=== PATIENT | female | born 1945 | race Caucasian/White ===

== ENCOUNTER 2017-12-10 09:28 | Emergency (ER) | payer MEDICARE ==
[2017-12-10 10:13] VITALS: BP 108/63
[2017-12-10] MEDS ORDERED: Ibuprofen ADULT LIQ* 600 MG/30 ML UDC PO ONE (10:30)
--- NOTE | 2017-12-10 10:30 | UC ---
Knee Pain HPI - HPI Summary HPI Summary: pt states having pain in the R knee this summer. had accidently tripped and fallen twice early this month which made it worse. admits to mild swelling. using husbands quad cane which helps. admits to sense of locking and giving out. - History of Current Complaint Chief Complaint: UCLowerExtremity Stated Complaint: RIGHT KNEE/LEG PAIN FROM FALL LAST WEEK Time Seen by Provider: 12/10/17 10:23 Hx Obtained From: Patient Onset/Duration: Gradual Onset Pain Intensity: 7 Character: Stiffness Aggravating Factor(s): Movement, Weight Bearing Alleviating Factor(s): Rest Associated Signs And Symptoms: Positive: Swelling. Negative: Redness, Fever, Weakness, Numbness, Tingling Able to Bear Weight: Yes - Risk Factors Septic Arthritis Risk Factor: Negative - Allergies/Home Medications Allergies/Adverse Reactions: Allergies Allergy/AdvReac Type Severity Reaction Status Date / Time No Known Allergies Allergy Verified 12/10/17 09:59 Home Medications: Home Medications Hydrochlorothiazide TAB* [Hydrodiuril TAB*] 25 mg PO DAILY 12/10/17 [History Confirmed 12/10/17] LORazepam [Ativan 1 MG TAB] 1 mg PO BID 12/10/17 [History Confirmed 12/10/17] Lactase [Lactaid] 3,000 unit PO PRN 12/10/17 [History] Metoprolol Tartrate TAB* [Lopressor TAB*] 50 mg PO DAILY 12/10/17 [History Confirmed 12/10/17] Simethicone TAB* [Mylicon TAB*] 80 mg PO AC PRN 12/10/17 [History Confirmed ] PMH/Surg Hx/FS Hx/Imm Hx Cardiovascular History: Hypertension Psychological History: Depression - Surgical History Surgical History: Yes Surgery Procedure, Year, and Place: HYSTERECTOMY. BACK SURGERY- [facility]. CHOLECYSTECTOMY. GASTRIC BYPASS. [facility]. EYE SURGERY FOR DOUBLE VISION - Family History Known Family History: Positive: Unknown - Social History Occupation: Retired Lives: With Family Alcohol Use: Rare Substance Use Type: Prescribed Substance Use Comment - Amount & Last Used: Hydrocodone PRN Smoking Status (MU): Never Smoked Tobacco - Immunization History Vaccination Up to Date: Yes Review of Systems Constitutional: Negative Skin: Negative Eyes: Negative ENT: Negative Respiratory: Negative Cardiovascular: Negative Gastrointestinal: Negative Genitourinary: Negative Motor: Negative Neurovascular: Negative Musculoskeletal: Arthralgia - r knee, Edema - r knee Neurological: Negative Psychological: Negative Is Patient Immunocompromised?: No All Other Systems Reviewed And Are Negative: Yes Physical Exam Triage Information Reviewed: Yes Appearance: Well-Appearing Vital Signs: Initial Vital Signs Temp 98.3 F 12/10/17 10:07 Pulse 57 12/10/17 10:07 Resp 16 12/10/17 10:07 BP 108/63 12/10/17 10:07 Pulse Ox 100 12/10/17 10:07 Vital Signs Reviewed: Yes Eyes: Positive: Conjunctiva Clear ENT: Positive: Normal ENT inspection Neck: Positive: Supple Respiratory: Positive: Lungs clear, Normal breath sounds Cardiovascular: Positive: RRR, No Murmur Abdomen Description: Positive: Nontender, No Organomegaly, Soft Bowel Sounds: Positive: Present Musculoskeletal: Positive: Other: - Right lower extremity exam: Hip ankle and foot are atraumatic. Right knee when compared to the left is mildly swollen primarily to the medial aspect. Patient has tenderness to the joint line. No crepitation or instability with palpation. No gross laxity on valgus varus anterior or posterior stressing. Right lower extremity has gross sensory and vascular and motor function. Patient has a slow but steady gait with the assistance of the quad cane. Neurological: Positive: Alert Psychological: Positive: Age Appropriate Behavior Skin Exam: Normal Diagnostics - Radiology No standard instances Radiology Interpretation Completed By: Radiologist - R knee OA Knee Pain Course/Dx - Course Course Of Treatment: no concern for fx or infection. OA on xray. Hx suggests possible meniscal tear. will nsaid and refer to orthopedics - Differential Dx/Diagnosis Provider Diagnoses: Acute R knee pain. OA R knee Discharge - Sign-Out/Discharge Documenting (check all that apply): Discharge/Admit/Transfer - Discharge Plan Condition: Stable Disposition: HOME Prescriptions: Naproxen TAB* [Naprosyn 375 mg TAB*] 375 mg PO BID #10 tab Patient Education Materials: Knee Pain (ED) Referrals: Danielle Huertas NP [Primary Care Provider] - If Needed Franky Bateman MD [Medical Doctor] - As Soon As Possible Additional Instructions: CONTINUE THE QUAD CANE - Billing Disposition and Condition Condition: STABLE Disposition: Home
--- NOTE | 2017-12-10 10:56 | RAD ---
HISTORY: pain, swelling COMPARISONS: None VIEWS: 4, Frontal, lateral, axial, and oblique views of the right knee FINDINGS: BONE DENSITY: There is diffuse osteopenia. BONES: There is no displaced fracture. JOINTS: There is moderate tricompartmental osteoarthritis. There is no suprapatellar joint effusion or lipohemarthrosis. ALIGNMENT: There is no dislocation. SOFT TISSUES: Unremarkable. OTHER FINDINGS: None. IMPRESSION: OSTEOARTHRITIS. NO ACUTE OSSEOUS INJURY. IF SYMPTOMS PERSIST, RECOMMEND REPEAT IMAGING.
[2017-12-10] MEDS ORDERED: Ibuprofen TAB* 400 MG PO ONE (10:58)
== END 2017-12-10 11:08 | disposition home or self-care (01) ==
LOC: UCCORT 09:28
DX: M17.11 Unilateral primary osteoarthritis, right knee (principal); I10 Essential (primary) hypertension; F32.9 Major depressive disorder, single episode, unspecified
CPT/HCPCS: 99212; A9270-GY; G0463

== ENCOUNTER 2018-02-27 08:27 | Emergency (ER) | payer MEDICARE ==
--- OUTSIDE RECORDS SUMMARY | 2018-02-27 08:39 | XMS REPORT ---
:1945 External Reference #:[id number] Author Organization [facility] Address [address], [address] [place] [address] Phone [phone] Care Team Providers Name Role Phone Alec Huertas NP Care Team Information Child Care Centre Manager Unavailable Alec Huertas NP Primary Care Physician Unavailable Payers Type Date Identification Numbers Payment Provider Subscriber Commercial Expires: Policy Number: Tara Adams 2010 [id number] [place] PayID: [id number] [address] [address] [place] [address] Medicare Primary Policy Number: [id number] Medicare David Adams [place] PayID: [id number] [address] [address] [place] [address] [facility] Policy Number: [facility] David Adams [place] [id number] PayID: [id number] [address] [place] [address] Problems Date Description Provider Status Onset: 09/01/2016 Essential hypertension AIDAN Moore Active Onset: 09/12/2014 Palpitations Justice Ponce M.D., Active FACC Onset: 08/18/2015 Chronic back pain Margot Baeza M.D. Active Onset: 02/18/2016 Gastroesophageal reflux disease AIDAN Moore Active without esophagitis Note: Document: 02/13/16 - Consult WILMAR - Jesus Owen M. 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 ADL's/IADL's Independent with all IADL's ADL's/IADL's Independent with all ADL's Cigarette Use Never Smoked Cigarettes ETOH Use Denies alcohol use Smoking Patient has never smoked Recreational Drug Use Denies Drug Use Daily Caffeine Consumes on average 2 cups of regular coffee per day Allergies, Adverse Reactions, Alerts Date Description Reaction Status Severity Comments 09/14/2016 Lactose (Intolerance) active 01/21/2011 NKDA inactive Medications Medication Date Status Form Strength Qnty SIG Indications Ordering Provider Metoprolol 08/27 Active Tablets ER 50mg 90tab 1 by I10 Jenniferleigh Succinate ER /2017 24HR s mouth Clune, HOG KILLER every day Lorazepam 03/07 Active Tablets 1mg 30tab take 1 F41.0 s tablet Clune, HOG KILLER by mouth two times daily as needed for panic attacks Referenc e #: [id number] Fluoxetine HCL 08/18 Active Capsules 40mg 180ca take one Z01.818 ps capsule Clune, HOG KILLER by mouth twice daily Hydrocodone-Acet Active Tablets 5-325mg 90tab 1 M17.11 Jenniferleigh aminophen s tabevery Clune, HOG KILLER 6 hours as needed pain.... . Referenc e #: [id number] Dairy-Digestive Active Chewtabs 9000Unit prn Margot / Florencio Baeza Apap Extra Active Tablets 500mg prn Unknown Strength / Fluticasone Active Suspension 50mcg/Act 15.80 2 sprays Jenniferleigh Propionate 0ml intranas Clune, HOG KILLER al every day Simethicone Active Capsules 125mg take 1 Unknown / tab by mouth after meals and before bedtime as needed for flatus Pantoprazole [address] 40mg Unknown Sodium / Ranitidine 150 Active Tablets 150mg 1 by Unknown Maximum Strength /0000 mouth twice a day Hydrochlorothiaz 08/27 Hx Tablets 25mg 90tab 1 by Alec s mouth AIDAN Huertas - every 02/07 day in am for HTN Metoprolol 08/25 Hx Tablets ER 50-12.5mg 90tab one PO I10 Alec Succinate 24HR s qd for AIDAN Huertas ER/Hydrochloroth - HTN iazide 08/27 Golytely 09/14 Hx Solution 236gm 4000m drink Z12.11 Rec l half the MD Emmy - evening 09/27 and half the morning of the procedur e (1 cup every 10') Dulcolax 09/[address] 5mg 4tabs 4 Z12.11 tablets MD Emmy - taken a 09/27 8pm day before the procedur e Magnesium 09/14 Hx Solution 1.745GM/3 296ml Z12.11 Dale Citrate 0ML MD Emmy - 09/27 Amoxicillin/Clav 03/04 Hx Tablets 500-125mg 20tab one by J01.90 Alec parker s mouth AIDAN Huertas Potassium - twice a 03/14 day x days Omeprazole 02/04 Hx Capsules 40mg [address] mouth - every Loratadine 01/14 Hx Tablets 10mg 30tab 1 by J30.9 Alec s mouth Aleksandar HOG KILLER - every Amoxicillin 12/10 Hx Capsules 500mg 30cap on by J02.9 Alec s mouth MIRIAN HuertasP - three 12/20 times day Venlafaxine HCL 05/26 Hx Tablets ER 150mg 30tab 1 by Z01.818 Margot ER /2014 24HR s mouth Florencio Baeza - every Metoprolol 02/08 Hx Tablets ER 25mg 90tab take one I10 Jenniferleigh Succinate /2010 24HR s tablet Clune, HOG KILLER - by mouth 08/25 once daily Nitroglycerin 01/25 Hx Tablets 0.4mg 25tab 1 tab 786.59 Austin Paniagua, /2010 Sub s prn , PhD chest pain, may repeat q 5 minutes x3 Prozac Hx Capsules 40mg 180ca 1 by Z01.818 Margot /0000 ps mouth Florencio Baeza - twice a Calcium + D Hx Tablets 600-200mg po bid Unknown /0000 -Unit - 12/10 Neurontin Hx Capsules 300mg 1 po tid Unknown / Mobic Hx Tablets 7.5mg 60tab 1 po bid Unknown / s Vitamin D Hx Capsules 2000Unit 1 po qd Unknown / Fish Oil Hx Capsules 500mg po tid Unknown / Aspirin Ec Hx Tablets DR 81mg 30tab 1 po qd Unknown / s - 12/10 Icaps Hx Capsules 2 po bid Unknown /0000 - 09/01 Vitamin D3 Super Hx Tablets 2000Unit 1 po qd Unknown Strength /0000 - 01/17 Nitrostat Hx Tablets 0.4mg 25tab 1 tab sl Jenniferleigh /0000 Sub s every 5 Clune, HOG KILLER - min x3 09/14 chest pain *divide in two bottles please* Folic Acid Hx Tablets 1mg 30tab 1 po bid Unknown / s - 12/10 Ranitidine Acid Hx Tablets 75mg 1 PO qd Margot Beater Worker Helper /0000 Florencio Baeza - 05/26 Famotidine Hx Tablets 20mg 1 by Unknown / mouth - every 02/09 day in /2017 the evening Ketorolac 00 Hx Solution 0.5% Chandana, Tromethamine / Kevon Neil MD 06/06 Ofloxacin Hx Solution 0.3% Ferpina, (Ophthalmic) Kevon Niel MD 06/06 Prednisolone Hx Suspension 1% Fergerspoli, Acetate Kevon Neil MD 06/06 Ranitidine HCL 00/00 Hx Tablets 150mg Shah, /0000 AIDAN Cheng - 01/30 Immunizations CPT Code Status Date Vaccine Lot # [id number] Given 03/07/2017 Influenza Vaccine Split Virus Preservative Free Im Use [id number] Given 03/08/2016 Influenza Vaccine (Fluzone) Age 3 And Older [id number] Given 05/26/2015 Pneumococcal Conjugate Vaccine 13 Valent For [id number] Intramuscular Use Q2038 Given 03/31/2015 Influenza Vaccine (Fluzone) Age 3 And Older Vital Signs Date Vital Result Comment 02/09/2018 BP Systolic Sitting Left Arm 115 mmHg BP Diastolic Sitting Left Arm 69 mmHg Heart Rate 58 /min Respiratory Rate 16 /min Height 62 inches 5'2" Weight 166.00 lb BMI (Body Mass Index) 30.4 kg/m2 BSA (Body Surface Area) 1.77 m2 [place] body weight in kilograms 50 O2 % BldC Oximetry 98 % 02/07/2018 BP Systolic Sitting Left Arm 104 mmHg BP Diastolic Sitting Left Arm 64 mmHg Heart Rate 70 /min Respiratory Rate 18 /min Height 62 inches 5'2" Weight 165.38 lb BMI (Body Mass Index) 30.2 kg/m2 BSA (Body Surface Area) 1.76 m2 [place] body weight in kilograms 50 01/17/2018 BP Systolic Sitting Left Arm 118 mmHg BP Diastolic Sitting Left Arm 70 mmHg Heart Rate 62 /min Respiratory Rate 16 /min Height 62 inches 5'2" Weight 171.00 lb BMI (Body Mass Index) 31.3 kg/m2 BSA (Body Surface Area) 1.79 m2 [place] body weight in kilograms 50 01/09/2018 BP Systolic Sitting Left Arm 126 mmHg BP Diastolic Sitting Left Arm 72 mmHg Body Temperature 98.5 F Heart Rate 72 /min Respiratory Rate 18 /min Height 62 inches 5'2" Weight 174.12 lb BMI (Body Mass Index) 31.8 kg/m2 BSA (Body Surface Area) 1.80 m2 [place] body weight in kilograms 50 09/22/2017 BP Systolic Sitting Left Arm 122 mmHg BP Diastolic Sitting Left Arm 76 mmHg Heart Rate 76 /min Respiratory Rate 18 /min Height 62 inches 5'2" Weight 184.12 lb BMI (Body Mass Index) 33.7 kg/m2 BSA (Body Surface Area) 1.85 m2 [place] body weight in kilograms 50 08/25/2017 BP Systolic Sitting Left Arm 154 mmHg BP Diastolic Sitting Left Arm 74 mmHg Heart Rate 54 /min Respiratory Rate 16 /min Height 62 inches 5'2" Weight 187.25 lb BMI (Body Mass Index) 34.2 kg/m2 BSA (Body Surface Area) 1.86 m2 [place] body weight in kilograms 50 07/26/2017 BP Systolic Sitting Left Arm 142 mmHg BP Diastolic Sitting Left Arm 84 mmHg Heart Rate 80 /min Respiratory Rate 18 /min Height 62 inches 5'2" Weight 190.50 lb BMI (Body Mass Index) 34.8 kg/m2 BSA (Body Surface Area) 1.87 m2 [place] body weight in kilograms 50 06/06/2017 BP Systolic Sitting Left Arm 122 mmHg BP Diastolic Sitting Left Arm 74 mmHg Body Temperature 98.6 F Heart Rate 78 /min Respiratory Rate 18 /min Height 62 inches 5'2" Weight 186.00 lb BMI (Body Mass Index) 34.0 kg/m2 BSA (Body Surface Area) 1.85 m2 [place] body weight in kilograms 50 03/07/2017 BP Systolic Sitting Left Arm 124 mmHg BP Diastolic Sitting Left Arm 72 mmHg Heart Rate 82 /min Respiratory Rate 18 /min Height 62 inches 5'2" Weight 185.00 lb BMI (Body Mass Index) 33.8 kg/m2 BSA (Body Surface Area) 1.85 m2 [place] body weight in kilograms 50 10/19/2016 BP Systolic Sitting Left Arm 136 mmHg BP Diastolic Sitting Left Arm 78 mmHg Heart Rate 68 /min Respiratory Rate 18 /min Height 62 inches 5'2" Weight 188.00 lb BMI (Body Mass Index) 34.4 kg/m2 BSA (Body Surface Area) 1.86 m2 [place] body weight in kilograms 50 09/14/2016 BP Systolic 150 mmHg BP Diastolic 84 mmHg Heart Rate 68 /min Weight 186.00 lb 09/01/2016 BP Systolic Sitting Left Arm 122 mmHg BP Diastolic Sitting Left Arm 72 mmHg Heart Rate 88 /min Respiratory Rate 18 /min Height 62 inches 5'2" Weight 186.00 lb BMI (Body Mass Index) 34.0 kg/m2 BSA (Body Surface Area) 1.85 m2 [place] body weight in kilograms 50 03/04/2016 BP Systolic Sitting Left Arm 130 mmHg BP Diastolic Sitting Left Arm 72 mmHg Body Temperature 98.5 F Heart Rate 82 /min Respiratory Rate 18 /min Height 62 inches 5'2" Weight 184.00 lb BMI (Body Mass Index) 33.7 kg/m2 BSA (Body Surface Area) 1.85 m2 [place] body weight in kilograms 50 01/29/2016 BP Systolic Sitting Left Arm 118 mmHg BP Diastolic Sitting Left Arm 72 mmHg Body Temperature 97.9 F Height 62 inches 5'2" Weight 181.00 lb BMI (Body Mass Index) 33.1 kg/m2 BSA (Body Surface Area) 1.83 m2 [place] body weight in kilograms 50 01/15/2016 BP Systolic Sitting Left Arm 154 mmHg BP Diastolic Sitting Left Arm 74 mmHg Body Temperature 98.5 F Height 62 inches 5'2" Weight 185.00 lb BMI (Body Mass Index) 33.8 kg/m2 BSA (Body Surface Area) 1.85 m2 [place] body weight in kilograms 50 01/05/2016 BP Systolic Sitting Left Arm 122 mmHg BP Diastolic Sitting Left Arm 76 mmHg Body Temperature 98.4 F Heart Rate 76 /min Respiratory Rate 18 /min Height 62 inches 5'2" Weight 183.00 lb BMI (Body Mass Index) 33.5 kg/m2 BSA (Body Surface Area) 1.84 m2 [place] body weight in kilograms 50 12/11/2015 BP Systolic Sitting Left Arm 124 mmHg BP Diastolic Sitting Left Arm 76 mmHg Body Temperature 99.1 F Heart Rate 70 /min Respiratory Rate 18 /min Height 62 inches 5'2" Weight 185.00 lb BMI (Body Mass Index) 33.8 kg/m2 BSA (Body Surface Area) 1.85 m2 [place] body weight in kilograms 50 05/26/2015 BP Systolic Sitting Left Arm 124 mmHg BP Diastolic Sitting Left Arm 70 mmHg Heart Rate 72 /min Respiratory Rate 19 /min Height 62 inches 5'2" Weight 184.00 lb BMI (Body Mass Index) 33.7 kg/m2 BSA (Body Surface Area) 1.85 m2 11/20/2014 BP Systolic Sitting Left Arm 114 mmHg BP Diastolic Sitting Left Arm 66 mmHg Heart Rate 68 /min Respiratory Rate 19 /min Height 62 inches 5'2" Weight 188.00 lb BMI (Body Mass Index) 34.4 kg/m2 BSA (Body Surface Area) 1.86 m2 09/12/2014 BP Systolic Sitting Right Arm 98 mmHg BP Diastolic Sitting Right Arm 50 mmHg Heart Rate 62 /min Respiratory Rate 16 /min Height 62 inches 5'2" Weight 189.00 lb BMI (Body Mass Index) 34.6 kg/m2 BSA (Body Surface Area) 1.87 m2 03/16/2012 BP Systolic Sitting Right Arm 132 mmHg BP Diastolic Sitting Right Arm 88 mmHg Heart Rate 56 /min Respiratory Rate 14 /min Height 62 inches 5'2" Weight 169.00 lb BMI (Body Mass Index) 30.9 kg/m2 03/08/2011 BP Systolic Sitting Left Arm 132 mmHg BP Diastolic Sitting Left Arm 82 mmHg Heart Rate 60 /min Respiratory Rate 16 /min Height 62 inches 5'2" Weight 174.00 lb BMI (Body Mass Index) 31.8 kg/m2 03/08/2011 Height 62 inches 5'2" 02/08/2011 BP Systolic Sitting Left Arm 122 mmHg BP Diastolic Sitting Left Arm 70 mmHg Heart Rate 66 /min Respiratory Rate 16 /min Height 62 inches 5'2" Weight 173.00 lb BMI (Body Mass Index) 31.6 kg/m2 01/25/2011 BP Systolic Sitting Right Arm 120 mmHg BP Diastolic Sitting Right Arm 70 mmHg BP Systolic Sitting Left Arm 124 mmHg BP Diastolic Sitting Left Arm 72 mmHg Heart Rate 72 /min Regular Respiratory Rate 12 /min Height 62 inches 5'2" Weight 172.00 lb BMI (Body Mass Index) 31.5 kg/m2 07/24/2007 Height 61 inches 5'1" Weight 214.00 lb 01/18/2007 Height 61 inches 5'1" Weight 224.00 lb 03/29/2006 Height 62 inches 5'2" Weight 233.00 lb Results Test Date Test Result H/L Range Note Hemoglobin/Hematocrit 01/27/2018 Hemoglobin 11.6 gm/dL 11.6-15.8 1 Hematocrit 34.9 % Low 36.0-46.1 1 Type And Screen 01/27/2018 Patient Blood Type O POS 1 Antibody Screen Negative Negative 1 CBS W/Automated Diff 01/27/2018 White Blood Count 8.1 K/uL 3.1-10.7 1 Red Blood Count 3.86 M/uL Low 3.90-5.40 1 Hemoglobin 12.3 gm/dL 11.6-15.8 1 Hematocrit 36.9 % 36.0-46.1 1 Mean Cell Volume 95.6 fl 80.9-99.0 1 Mean Corpuscular HGB 31.9 pg 25.9-32.7 1 Mean Corpuscular HGB Conc 33.3 g/dL 30.8-34.3 1 Platelet Count 242 K/uL 155-360 1 Red Cell Distri Width SD 47.1 fl High 3-47 1 Red Cell Distri Width %CV 14.0 % 11.7-14.4 1 Mean Platelet Volume 10.2 fL 8.9-12.4 1 Neut% 81.8 % High 40.4-72.8 1 Lymph % 10.6 % Low 20.0-42.0 1 [place] % 7.5 % 4.3-13.2 1 Eo% 0.1 % 0.0-6.6 1 Bas% 0.0 % 0.0-1.1 1 Neut# 6.64 K/uL 1.8-7.0 1 Lymph # 0.86 K/uL Low 1.0-4.0 1 [place] # 0.61 K/uL 0.3-0.9 1 Eos # 0.01 K/uL 0.0-0.5 1 Baso # 0.00 K/uL 0.0-0.1 1 Occult Blood,Stool 01/27/2018 Stool Occult POSITIVE Negative 1, 2 Blood-Single Spec Comprehensive Metabolic 01/27/2018 Glucose 119 mg/dL High 74-106 1 Panel BUN 13 mg/dL 7-18 1 Creatinine 1.1 mg/dL 0.6-1.3 1 Glom Filtration Rate, Estimate 52 mL/min >60 1 If >60 mL/min >60 1, 3 BUN/Creat 11.8 ratio 1 Sodium 138 mmol/L 136-145 1 Potassium 3.2 mmol/L Low 3.5-5.1 1 Chloride 99 mmol/L 98-107 1 Carbon Dioxide 32 mmol/L 21-32 1 Anion Gap 7 mEq/L Low 8-16 1 Calcium 8.6 mg/dL 8.5-10.1 1 Total Protein 6.9 g/dL 6.4-8.2 1 Albumin 3.1 g/dL Low 3.4-5.0 1 Globulin 3.8 g/dL 1.9-4.3 1 Alb/Glob 0.8 ratio 1 Bilirubin,Total 0.3 mg/dL 0.2-1.0 1 Sgot/Ast 20 U/L 15-37 1 SGPT/Alt 16 U/L 12-78 1 Alkaline Phosphatase 79 U/L 45-117 1 Blood Culture 01/26/2018 Blood Culture Aerobic NO GROWTH: FINAL <SEE NOTE> 4, 5 Blood Culture Anaerobic NO GROWTH: FINAL <SEE NOTE> 4, 6 Ua RFX Micro & Culture II 01/26/2018 Urine Color YELLOW Yellow 4 Urine Clarity CLEAR Clear 4 Urine Glucose - Dipstick NEGATIVE mg/dL Negative 4 Urine Bilirubin - Dipstick NEGATIVE Negative 4 Urine Ketone TRACE mg/dL High Negative 4 Urine Specific [place] 1.010 1.010-1.030 4 Urine Blood NEGATIVE Negative 4 Urine PH 6.0 Low 6.5-7.5 4 Urine Protein - Dipstick NEGATIVE mg/dL Negative 4 Urine Urobilinogen - Dipstick 1.0 E.U./dL 0.2-1.0 4 Urine Nitrite - Dipstick NEGATIVE Negative 4 Urine Leuk Esterase NEGATIVE Negative 4 Source: URINE, CLEAN CAT <SEE NOTE> 4, 7 CBS W/Automated Diff 01/26/2018 White Blood Count 7.8 K/uL 3.1-10.7 4 Red Blood Count 4.14 M/uL 3.90-5.40 4 Hemoglobin 13.2 gm/dL 11.6-15.8 4 Hematocrit 39.8 % 36.0-46.1 4 Mean Cell Volume 96.1 fl 80.9-99.0 4 Mean Corpuscular HGB 31.9 pg 25.9-32.7 4 Mean Corpuscular HGB Conc 33.2 g/dL 30.8-34.3 4 Platelet Count 256 K/uL 155-360 4 Red Cell Distri Width SD 48.4 fl High 3-47 4 Red Cell Distri Width %CV 14.2 % 11.7-14.4 4 Mean Platelet Volume 10.5 fL 8.9-12.4 4 Neut% 79.9 % High 40.4-72.8 4 Lymph % 14.0 % Low 20.0-42.0 4 [place] % 5.7 % 4.3-13.2 4 Eo% 0.3 % 0.0-6.6 4 Bas% 0.1 % 0.0-1.1 4 Neut# 6.20 K/uL 1.8-7.0 4 Lymph # 1.09 K/uL 1.0-4.0 4 [place] # 0.44 K/uL 0.3-0.9 4 Eos # 0.02 K/uL 0.0-0.5 4 Baso # 0.01 K/uL 0.0-0.1 4 Comprehensive Metabolic Panel 01/26/2018 Glucose 132 mg/dL High 74-106 4 BUN 16 mg/dL 7-18 4 Creatinine 1.2 mg/dL 0.6-1.3 4 Glom Filtration Rate, Estimate 47 mL/min >60 4 If 56 mL/min >60 4, 8 BUN/Creat 13.3 ratio 4 Sodium 138 mmol/L 136-145 4 Potassium 3.3 mmol/L Low 3.5-5.1 4 Chloride 99 mmol/L 98-107 4 Carbon Dioxide 32 mmol/L 21-32 4 Anion Gap 7 mEq/L Low 8-16 4 Calcium 9.2 mg/dL 8.5-10.1 4 Total Protein 8.0 g/dL 6.4-8.2 4 Albumin 3.7 g/dL 3.4-5.0 4 Globulin 4.3 g/dL 1.9-4.3 4 Alb/Glob 0.9 ratio 4 Bilirubin,Total 0.4 mg/dL 0.2-1.0 4 Sgot/Ast 16 U/L 15-37 4 SGPT/Alt 18 U/L 12-78 4 Alkaline Phosphatase 94 U/L 45-117 4 Laboratory test finding 01/26/2018 Lipase 112 U/L 56-289 4 Lactic Acid 01/26/2018 Lactic Acid 1.1 mmol/L 0.4-1.9 4 Lab Reflex >2.0 for Sepsis? Y 4 Blood Culture 01/26/2018 Blood Culture Aerobic NO GROWTH: FINAL <SEE NOTE> 4, 9 Blood Culture Anaerobic NO GROWTH: FINAL <SEE NOTE> 4, 10 Comprehensive Metabolic Panel 01/17/2018 Glucose 83 mg/dL 74-106 11 BUN 21 mg/dL High 7-18 11 Creatinine 1.4 mg/dL High 0.6-1.3 11 Glom Filtration Rate, Estimate 39 mL/min >60 11 If 47 mL/min >60 11, 12 BUN/Creat 15.0 ratio 11 Sodium 143 mmol/L 136-145 11 Potassium 3.3 mmol/L Low 3.5-5.1 11 Chloride 104 mmol/L 98-107 11 Carbon Dioxide 32 mmol/L 21-32 11 Anion Gap 7 mEq/L Low 8-16 11 Calcium 8.7 mg/dL 8.5-10.1 11 Total Protein 6.8 g/dL 6.4-8.2 11 Albumin 3.2 g/dL Low 3.4-5.0 11 Globulin 3.6 g/dL 1.9-4.3 11 Alb/Glob 0.9 ratio 11 Bilirubin,Total 0.2 mg/dL 0.2-1.0 11 Sgot/Ast 21 U/L 15-37 11 SGPT/Alt 17 U/L 12-78 11 Alkaline Phosphatase 89 U/L 45-117 11 Laboratory test finding 01/17/2018 Amylase 58 U/L 25-115 11 Lipase 150 U/L 56-289 11 Urine Culture And 12/06/2017 Urine Culture SEE RESULT BELOW 13 Sensitivities Laboratory test finding 07/21/2017 Magnesium 2.3 mg/dL 1.8-2.4 14 Phosphorous 3.1 mg/dL 2.5-4.0 14 Ast-GN67 10/19/2016 Nitrofurantoin <=16 Trimethoprim/Sulfamethoxazole <=20 Ampicillin 8 Cefazolin <=4 Ampicillin/Sulbactam 4 Ciprofloxacin <=0.25 Piperacillin/Tazobactam <=4 Ceftazidime <=1 Ceftriaxone <=1 Cefepime <=1 Levofloxacin <=0.12 Imipenem <=0.25 Gentamicin <=1 Tobramycin <=1 Urine Culture 10/19/2016 Urine Culture ESCHERICHIA COLI 15 Quantity > 100,000 CFU/mL 16 Glycohemoglobin A1c 09/22/2016 Glycohemoglobin (A1c) 5.7 % 4.2-6.3 17, 18 eAG 117 mg/dL 17 CBS W/Automated Diff 09/10/2016 White Blood Count 5.1 K/uL 3.1-10.7 19 Red Blood Count 4.51 M/uL 3.90-5.40 19 Hemoglobin 14.0 gm/dL 11.6-15.8 19 Hematocrit 43.9 % 36.0-46.1 19 Mean Cell Volume 97.3 fl 80.9-99.0 19 Mean Corpuscular HGB 31.0 pg 25.9-32.7 19 Mean Corpuscular HGB Conc 31.9 g/dL 30.8-34.3 19 Platelet Count 251 K/uL 150-400 19 Red Cell Distri Width SD 50.8 fl High 3-47 19 Red Cell Distri Width %CV 14.6 % High 11.7-14.4 19 Mean Platelet Volume 11.1 fL 8.9-12.4 19 Neut% 65.1 % 40.4-72.8 19 Lymph % 22.2 % 20.0-42.0 19 [place] % 8.1 % 4.3-13.2 19 Eo% 4.2 % 0.0-6.6 19 Bas% 0.4 % 0.0-1.1 19 Neut# 3.29 K/uL 1.8-7.0 19 Lymph # 1.12 K/uL 1.0-4.0 19 [place] # 0.41 K/uL 0.3-0.9 19 Eos # 0.21 K/uL 0.0-0.5 19 Baso # 0.02 K/uL 0.0-0.1 19 Comprehensive Metabolic Panel 09/10/2016 Glucose 141 mg/dL High 74-106 19 BUN 16 mg/dL 7-18 19 Creatinine 1.1 mg/dL 0.6-1.3 19 Glom Filtration Rate, Estimate 52 mL/min >60 19 If >60 mL/min >60 19, 20 BUN/Creat 14.5 ratio 19 Sodium 143 mmol/L 136-145 19 Potassium 4.2 mmol/L 3.5-5.1 19 Chloride 109 mmol/L High 98-107 19 Carbon Dioxide 26 mmol/L 21-32 19 Anion Gap 8 mEq/L 8-16 19 Calcium 8.5 mg/dL 8.5-10.1 19 Total Protein 6.7 g/dL 6.4-8.2 19 Albumin 3.6 g/dL 3.4-5.0 19 Globulin 3.1 g/dL 1.9-4.3 19 Alb/Glob 1.2 ratio 19 Bilirubin,Total 0.3 mg/dL 0.2-1.0 19 Sgot/Ast 27 U/L 15-37 19 SGPT/Alt 30 U/L 12-78 19 Alkaline Phosphatase 95 U/L 45-117 19 LDL Cholesterol Profile 09/10/2016 Cholesterol 167 mg/dL <200 19, 21 Triglycerides 78 mg/dL <150 19, 22 HDL Cholesterol 73 mg/dL >40 19, 23 LDL-Cholesterol 78 mg/dL < 100 19, 24 Laboratory test finding 09/10/2016 Vitamin D,1,25 62.5 pg/mL 19.9-79.3 19, 25 Dihydroxy Basic Metabolic Panel 11/20/2014 Glucose 89 mg/dL 74-106 BUN 20 mg/dL High 7-18 Creatinine 0.9 mg/dL 0.6-1.3 Glom Filtration Rate, Estimate >60 mL/min >60 If >60 mL/min >60 26 BUN/Creat 22.2 ratio Sodium 144 mmol/L 136-145 Potassium 4.0 mmol/L 3.5-5.1 Chloride 110 mmol/L High 98-107 Carbon Dioxide 27 mmol/L 21-32 Anion Gap 7 mEq/L Low 8-16 Calcium 8.7 mg/dL 8.5-10.1 LDL Cholesterol Profile 11/20/2014 Cholesterol 167 mg/dL 150-200 27 Triglycerides 111 mg/dL 50-150 28 HDL Cholesterol 63 mg/dL 60-150 29 LDL-Cholesterol 82 mg/dL 75-100 30 Liver Function Tests 11/20/2014 Total Protein 6.6 g/dL 6.4-8.2 Albumin 3.6 g/dL 3.4-5.0 Globulin 3.0 g/dL 1.9-4.3 Alb/Glob 1.2 ratio Bilirubin,Total 0.2 mg/dL 0.2-1.0 Bilirubin,Direct < 0.1 mg/dL 0.0-0.2 Bilirubin,Indirect 0.1 mg/dL 0.0-0.9 Sgot/Ast 27 U/L 15-37 SGPT/Alt 27 U/L 12-78 Alkaline Phosphatase 94 U/L 45-117 Laboratory test finding 11/20/2014 Thyroid Stim Hormone 1.79 uIU/mL 0.36- 3.74 CBC/Manual Differential 11/20/2014 White Blood Count 5.8 K/uL 3.1-10.7 Red Blood Count 4.17 M/uL 3.90-5.40 Hemoglobin 13.4 gm/dL 11.6-15.8 Hematocrit 40.9 % 36.0-46.1 Mean Cell Volume 98.1 fl 80.9-99.0 Mean Corpuscular HGB 32.1 pg 25.9-32.7 Mean Corpuscular HGB Conc 32.8 g/dL 30.8-34.3 Platelet Count 247 K/uL 155-360 Red Cell Distri Width %CV 13.1 % 11.7-14.4 Mean Platelet Volume 11.3 fL 8.9-12.4 Total Cells Counted 100 #CELLS Neutrophils% 75 % High 33-73 Lymph% 15 % Low 17-56 Platelet Estimate NORMAL Band% 3 % 0-8 Monocyte% 5 % 0-10 Eosinophil% 1 % 0-5 Basophil% 1 % 0-2 Anisocytosis 1+ Macrocytosis 1+ Differential Comment See Note 31 BUN And Creatinine 07/26/2007 BUN 20 mg/dL 5-23 BUN/Creat 18.1 Creatinine 1.1 mg/dL 0.5-1.4 Laboratory test finding 07/26/2007 Albumin 4.1 g/dL 3.5-5.0 Alkaline Phosphatase 98 U/L 50-136 Bilirubin,Direct 0.1 mg/dL 0.1-0.4 Bilirubin,Indirect 0.2 mg/dL 0.0-0.9 Bilirubin,Total 0.3 mg/dL 0.2-1.2 SGPT/Alt 32 U/L 30-65 Sgot/Ast 25 U/L 16-40 Total Protein 6.4 g/dL 6.3-8.0 BUN And Creatinine 01/18/2007 BUN 20 mg/dL 5-23 Creatinine 0.9 mg/dL 0.5-1.4 Laboratory test finding 01/18/2007 Albumin 4.0 g/dL 3.5-5.0 Alkaline Phosphatase 95 U/L 50-136 Bilirubin,Direct 0.1 mg/dL 0.1-0.4 Bilirubin,Indirect 0.1 mg/dL 0.0-0.9 Bilirubin,Total 0.2 mg/dL 0.2-1.2 SGPT/Alt 43 U/L 30-65 Sgot/Ast 28 U/L 16-40 Total Protein 6.6 g/dL 6.3-8.0 1 BLACK STOOLS/WAS HERE YESTERDAY 2 Method: Glenis Gurdon Hemoccult Card 3 Note: Persistent reduction for 3 months or more in an eGFR <60 mL/min/1.73 m2 defines CKD. Patients with eGFR values >/=60 mL/min/1.73 m2 may also have CKD if evidence of persistent proteinuria is present. The original MDRD equation for estimated GFR is not valid for patients less than 18 years of age. Additional information may be found at [email or web address]. 4 ABD PAIN 5 NO GROWTH: FINAL REPORT 6 NO GROWTH: FINAL REPORT 7 URINE, CLEAN CATCH 8 Note: Persistent reduction for 3 months or more in an eGFR <60 mL/min/1.73 m2 defines CKD. Patients with eGFR values >/=60 mL/min/1.73 m2 may also have CKD if evidence of persistent proteinuria is present. The original MDRD equation for estimated GFR is not valid for patients less than 18 years of age. Additional information may be found at [email or web address]. 9 NO GROWTH: FINAL REPORT 10 NO GROWTH: FINAL REPORT 11 R10.13 12 Note: Persistent reduction for 3 months or more in an eGFR <60 mL/min/1.73 m2 defines CKD. Patients with eGFR values >/=60 mL/min/1.73 m2 may also have CKD if evidence of persistent proteinuria is present. The original MDRD equation for estimated GFR is not valid for patients less than 18 years of age. Additional information may be found at [email or web address]. 13 SEE RESULT BELOW Name: DAVID BARRERA : [address]: Jonas Valadez MD Acct: [id number] Unit: [id number] AGE: 72 Location: [facility] Re12/06/17 SEX: F Status: REG REF SPEC: [id number] JAIR: 12/06/[address] [facility] [address]: Jonas Valadez MD REQ: [id number] RECD: 12/06/17 STATUS: INGRIS WONG DR: Alec Huertas HOG KILLER _ SOURCE: URINE SPDESC: ORDERED: Urine Culture QUERIES: Urine Source: Clean Catch Procedure Result Reported Site Urine Culture Final 12/08/17- 0809 ML Organism 1 ESCHERICHIA COLI [place] Count >100,000 (Many) CFU/ML 1. ESCHERICHIA COLI M.I.C. RX --------- ------ Ampicillin 8 S Cefazolin <=4 S Cefepime <=1 S Ceftriaxone <=1 S Ciprofloxacin <=0.25 S Gentamicin <=1 S Levofloxacin <=0.12 S Meropenem <=0.25 S Nitrofurantoin <=16 S Tetracycline <=1 S Pipercillin/Tazobactam <=4 S Trimethoprim/Sulfamethoxazole <=20 S Amoxicillin/Clavulanic Acid 4 S Aztreonam <=1 S Contact the Microbiology Department for any additional antibiotic reporting. * ML - Main Lab . END OF REPORT DEPARTMENT OF PATHOLOGY, [address] [place] [address] Mandeep Dunbar M.D. Director [facility] # [id number] 14 Z01.818 H26.9 15 ESCHERICHIA COLI 16 > 100,000 CFU/mL 17 R73.9 18 Elevated levels of HbA1c suggest the need for more aggressive treatment of glycemia. The [place] [employer] recommends that a primary goal of therapy should be a HbA1c of <7% and that physicians should re-evaluate the treatment regimen in patients with HbA1c values consistently >8%. 19 I10 20 Note: Persistent reduction for 3 months or more in an eGFR <60 mL/min/1.73 m2 defines CKD. Patients with eGFR values >/=60 mL/min/1.73 m2 may also have CKD if evidence of persistent proteinuria is present. The original MDRD equation for estimated GFR is not valid for patients less than 18 years of age. Additional information may be found at www.kdoqi.org. 21 Reference Guidelines*: Desirable: ........... < 200 mg/dL Borderline High: ..... 200-239 mg/dL High: ................ >=240 mg/dL * The National Cholesterol Education Program (NCEP) 22 Reference Guidelines*: Normal: ............. < 150 mg/dL Borderline High: .... 150-199 mg/dL High: ............... 200-499 mg/dL Very High: .......... > 500 mg/dL * Source: National Cholesterol Education Program (NCEP) 23 Reference Guidelines*: Low HDL: ..... < 40 mg/dL Normal: ..... 40-60 mg/dL Desirable: ... > 60 mg/dL *The National Cholesterol Education Program(NCEP) 24 Reference Guidelines*: Optimal:........... <100 mg/dL Near Optimal....... 100-129 mg/dL Borderline High.... 130-159 mg/dL High............... 160-189 mg/dL Very High.......... >=190 mg/dL * Source: National Cholesterol Education Program (NCEP) 25 Performed at: [facility] - [facility] [id number] Icu Rn: Chris Iyer MD, Phone: [phone] 26 Note: Persistent reduction for 3 months or more in an eGFR <60 mL/min/1.73 m2 defines CKD. Patients with eGFR values >/=60 mL/min/1.73 m2 may also have CKD if evidence of persistent proteinuria is present. The original MDRD equation for estimated GFR is not valid for patients less than 18 years of age. Additional information may be found at www.kdoqi.org. 27 Reference Guidelines*: Desirable: ........... < 200 mg/dL Borderline High: ..... 200-239 mg/dL High: ................ >=240 mg/dL * The National Cholesterol Education Program (NCEP) 28 Reference Guidelines*: Normal: ............. < 150 mg/dL Borderline High: .... 150-199 mg/dL High: ............... 200-499 mg/dL Very High: .......... > 500 mg/dL * Source: National Cholesterol Education Program (NCEP) 29 Reference Guidelines*: Low HDL: ..... < 40 mg/dL Normal: ..... 40-60 mg/dL Desirable: ... > 60 mg/dL *The National Cholesterol Education Program(NCEP) 30 Reference Guidelines*: Optimal:........... <100 mg/dL Near Optimal....... 100-129 mg/dL Borderline High.... 130-159 mg/dL High............... 160-189 mg/dL Very High.......... >=190 mg/dL * Source: National Cholesterol Education Program (NCEP) 31 FEW LRG PLTS SEEN Procedures Date CPT Code Description Status Comment 01/25/2018 04450 EGD With Biopsy Completed 07/26/2017 01017 EKG-Tracing And Report Completed 09/27/2016 61698 Colonoscopy Completed 04/28/2015 Mammogram Completed Q 2 years Smiley Behzad 06/27/2012 Bone Mineral Density Test Completed osteopenia 03/16/2012 58622 EKG-Tracing And Report Completed 02/08/2011 05404 Holter Monitor 24HR Completed Inter/Report 01/29/2011 95303 Stress Test Interpre And Report Completed Only 01/29/2011 64103 Stress Test Physician Super Completed Only 01/29/2011 94159 Myocardial Imaging Tomographic Completed Multiple Study AT Rest Or Stress 01/25/2011 98239 EKG-Tracing And Report Completed 01/25/2011 94708 EKG-Tracing And Report Completed 01/04/2011 44105 Echocardiogram Complete Completed 07/24/2007 19949 Asp/Injection small joint/bursa Completed (ie-fingers,toes) 03/07/2007 25 Disability Form Completed 03/29/2006 03962 Asp/Injection small joint/bursa Completed (ie-fingers,toes) 05/17/2005 Colonoscopy Completed 04/13/2000 Flexible Sigmoidoscopy Completed Encounters Type Date Location Provider CPT E/M Dx Office Visit 02/07/2018 2:00p Family Medicine AIDAN Moore 79774 I10 R10.13 Office Visit 01/17/2018 2:30[place] [address] R10.13 Office Visit 01/09/2018 1:45p Family AIDAN Govea 73411 R10.13 R10.816 Office Visit 09/22/2017 10:30a Family AIDAN Govea 70087 I10 F41.0 Office Visit 08/25/2017 10:30a Family AIDAN Govea 78383 I10 F33.1 F41.0 Office Visit 07/26/2017 10:15a Family AIDAN Govea 51917 Z01.818 H54.52A1 F41.0 I10 Office Visit 06/06/2017 9:00a Family AIDAN Govea 96825 F41.0 Office Visit 03/07/2017 10:00a Family AIDAN Govea 46119 F41.0 I10 M54.5 F33.1 Z23 Office Visit 10/21/2016 10:15a Family [facility] Alec Huertas, [facility] [address] I10 Office Visit 10/19/2016 1:30p [facility] Alec Huertas [facility] 97245 Z01.818 H26.9 R30.0 I10 Office Visit 09/14/2016 10:45[place] [address] Z12.11 Office Visit 09/01/2016 10:00a [facility] Alec Huertas, [facility] [address]74[address] I10 M54.5 Office Visit 03/04/2016 3:00p [facility] Alec Huertas, [facility] 43083 J01.90 Office Visit 01/29/2016 10:15a [facility] Alec Huertas [facility] 96777 J30.9 J31.2 Office Visit 01/15/2016 1:15p [facility] Alec Huertas [facility] 25204 J30.9 Office Visit 01/05/2016 11:30a Family Medicine Margot Baeza M.D. 44915 J31.2 Office Visit 12/11/2015 11:45a [facility] Alec Huertas [facility] 30955 J02.9 Office Visit 05/26/2015 1:00p Family Medicine Margot Baeza M.D. 10466 F33.1 Z23 Office Visit 11/20/2014 1:30p Family Medicine Margot Baeza M.D. 03700 296.32 785.1 401.1 Office Visit 09/12/2014 2:00p Cardiology Office Justice Ponce, [address] 401.1 MCarina, [facility] 272.2 785.1 Office Visit 03/16/2012 10:20a [place]iology [place] [address] 401.1 786.59 427.69 Office Visit 03/08/2011 11:20a Cardiology [place] [address] 786.59 401.1 786.05 272.2 785.1 Office Visit 02/08/2011 1:20p Cardiology Office MARY Flowers 74334 786.59 401.1 786.05 272.2 785.1 Office Visit 01/25/2011 1:20p Cardiology Office Beronica MARY Rodriguez 07480 786.59 401.1 786.05 272.2 Plan of Care Future Appointment(s):08/10/2018 10:00 am - AIDAN Moore at [facility]03/10/2018 10:00 am - Family Nurse at [facility]02/09/2018 - Dale Booth, MDR10.13 Epigastric painComments:abdominal pain resolvedI would not continue pantoprazole after it runs out.K62.5 Hemorrhage of anus and rectumComments:work up at [facility], bleeding scan suggested colonic source. Get colonoscopy records
--- OUTSIDE RECORDS SUMMARY | 2018-02-27 08:40 | XMS REPORT ---
:1945 External Reference #:[id number] Author Organization [facility] Address [address], [address] [place] [address] Phone [phone] Care Team Providers Name Role Phone Alec Huertas NP Care Team Information Workforce Management Coordinator Unavailable Alec Huertas NP Primary Care Physician Unavailable Payers Type Date Identification Numbers Payment Provider Subscriber Commercial Expires: Policy Number: Tara Adams 2010 [id number] [employer] PayID: [id number] [address] [address] [place] [address] Medicare Primary Policy Number: [id number] Medicare David Adams [employer] PayID: [id number] [address] [address] [place] [address] [facility] Policy Number: [facility] David Adams [employer] [id number] PayID: [id number] [address] [place] [address] Problems Date Description Provider Status Onset: 09/01/2016 [...] Succinate ER /2017 24HR s mouth Clune, [employer] every day Lorazepam 03/07 Active Tablets 1mg 30tab take 1 F41.0 s tablet 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 . Referenc e #: [id number] Dairy-Digestive Active Chewtabs 9000Unit prn Margot / Florencio Baeza Apap Extra Active Tablets 500mg prn Unknown Strength / Fluticasone Active Suspension 50mcg/Act 15.80 2 sprays Jenniferleigh Propionate 0ml intranas Clune, [employer] MILL OPERATOR al every day Simethicone Active Capsules 125mg [...] 1 by J30.9 Alec s mouth Aleksandar [employer] OPER[employer] - every Amoxicillin 12/10 Hx Capsules 500mg 30cap on by J02.9 Alec s mouth MIRIAN HuertasP - three 12/20 times day Venlafaxine HCL 05/26 Hx Tablets ER 150mg 30tab 1 by Z01.818 Margot ER /2014 24HR s mouth Florencio Baeza - every Metoprolol 02/08 Hx Tablets ER 25mg 90tab take one I10 Jenniferleigh Succinate /2010 24HR s tablet 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, [employer] MILL OPERATOR - by mouth 08/25 once daily Nitroglycerin [...] Jenniferleigh /0000 Sub s every 5 Clune, [employer] M[employer] OPERATOR - min x3 09/14 chest pain *divide in two bottles please* Folic Acid Hx Tablets 1mg 30tab 1 po bid Unknown / s - 12/10 Ranitidine Acid Hx Tablets 75mg 1 PO qd Margot Outside Collector /0000 Florencio Baeza - 05/26 Famotidine Hx Tablets 20mg 1 by Unknown / mouth - every 02/09 day in /2017 the evening Ketorolac 00 Hx Solution 0.5% Chandana, Tromethamine / Kevon Neil MD 06/06 Ofloxacin Hx Solution 0.3% Ferpina, (Ophthalmic) Kevon Neil MD 06/06 Prednisolone Hx Suspension 1% Fergerspoli, Acetate Kevon Neil MD 06/06 Ranitidine HCL 00/00 Hx Tablets 150mg Shah, /0000 AIDAN Cheng - 01/30 Immunizations CPT Code Status Date Vaccine Lot # [id number] Given 03/07/2017 Influenza Vaccine Split Virus Preservative Free Im Use Q2038 Given 03/08/2016 Influenza Vaccine (Fluzone) Age 3 And Older 99991 Given 05/26/2015 Pneumococcal Conjugate Vaccine 13 Valent For [id number] Intramuscular Use Q2038 Given 03/31/2015 Influenza Vaccine (Fluzone) Age 3 And Older Vital Signs Date Vital Result Comment 02/09/2018 BP Systolic Sitting Left Arm 115 mmHg BP Diastolic Sitting Left Arm 69 mmHg Heart Rate 58 /min Respiratory Rate 16 /min Height 62 inches 5'2" Weight 166.00 lb BMI (Body Mass Index) 30.4 kg/m2 BSA (Body Surface Area) 1.77 m2 [place] body weight in kilograms 50 O2 % BldC Oximetry 98 % 02/07/2018 BP Systolic Sitting Left Arm 104 mmHg BP Diastolic Sitting Left Arm 64 mmHg Heart Rate 70 /min Respiratory Rate 18 /min Height 62 inches 5'2" Weight 165.38 lb BMI (Body Mass Index) 30.2 kg/m2 BSA (Body Surface Area) 1.76 m2 [place] body weight in kilograms 50 01/17/2018 BP Systolic Sitting Left Arm 118 mmHg BP Diastolic Sitting Left Arm 70 mmHg Heart Rate 62 /min Respiratory Rate 16 /min Height 62 inches 5'2" Weight 171.00 lb BMI (Body Mass Index) 31.3 kg/m2 BSA (Body Surface Area) 1.79 m2 [place] body weight in kilograms 50 01/09/2018 BP Systolic Sitting Left Arm 126 mmHg BP Diastolic Sitting Left Arm 72 mmHg Body Temperature 98.5 F Heart Rate 72 /min Respiratory Rate 18 /min Height 62 inches 5'2" Weight 174.12 lb BMI (Body Mass Index) 31.8 kg/m2 BSA (Body Surface Area) 1.80 m2 [place] body weight in kilograms 50 09/22/2017 BP Systolic Sitting Left Arm 122 mmHg BP Diastolic Sitting Left Arm 76 mmHg Heart Rate 76 /min Respiratory Rate 18 /min Height 62 inches 5'2" Weight 184.12 lb BMI (Body Mass Index) 33.7 kg/m2 BSA (Body Surface Area) 1.85 m2 [place] body weight in kilograms 50 08/25/2017 BP Systolic Sitting Left Arm 154 mmHg BP Diastolic Sitting Left Arm 74 mmHg Heart Rate 54 /min Respiratory Rate 16 /min Height 62 inches 5'2" Weight 187.25 lb BMI (Body Mass Index) 34.2 kg/m2 BSA (Body Surface Area) 1.86 m2 [place] body weight in kilograms 50 07/26/2017 BP Systolic Sitting Left Arm 142 mmHg BP Diastolic Sitting Left Arm 84 mmHg Heart Rate 80 /min Respiratory Rate 18 /min Height 62 inches 5'2" Weight 190.50 lb BMI (Body Mass Index) 34.8 kg/m2 BSA (Body Surface Area) 1.87 m2 [place] body weight in kilograms 50 06/06/2017 BP Systolic Sitting Left Arm 122 mmHg BP Diastolic Sitting Left Arm 74 mmHg Body Temperature 98.6 F Heart Rate 78 /min Respiratory Rate 18 /min Height 62 inches 5'2" Weight 186.00 lb BMI (Body Mass Index) 34.0 kg/m2 BSA (Body Surface Area) 1.85 m2 [place] body weight in kilograms 50 03/07/2017 BP Systolic Sitting Left Arm 124 mmHg BP Diastolic Sitting Left Arm 72 mmHg Heart Rate 82 /min Respiratory Rate 18 /min Height 62 inches 5'2" Weight 185.00 lb BMI (Body Mass Index) 33.8 kg/m2 BSA (Body Surface Area) 1.85 m2 [place] body weight in kilograms 50 10/19/2016 BP Systolic Sitting Left Arm 136 mmHg BP Diastolic Sitting Left Arm 78 mmHg Heart Rate 68 /min Respiratory Rate 18 /min Height 62 inches 5'2" Weight 188.00 lb BMI (Body Mass Index) 34.4 kg/m2 BSA (Body Surface Area) 1.86 m2 [place] body weight in kilograms 50 09/14/2016 BP Systolic 150 mmHg BP Diastolic 84 mmHg Heart Rate 68 /min Weight 186.00 lb 09/01/2016 BP Systolic Sitting Left Arm 122 mmHg BP Diastolic Sitting Left Arm 72 mmHg Heart Rate 88 /min Respiratory Rate 18 /min Height 62 inches 5'2" Weight 186.00 lb BMI (Body Mass Index) 34.0 kg/m2 BSA (Body Surface Area) 1.85 m2 [place] body weight in kilograms 50 03/04/2016 BP Systolic Sitting Left Arm 130 mmHg BP Diastolic Sitting Left Arm 72 mmHg Body Temperature 98.5 F Heart Rate 82 /min Respiratory Rate 18 /min Height 62 inches 5'2" Weight 184.00 lb BMI (Body Mass Index) 33.7 kg/m2 BSA (Body Surface Area) 1.85 m2 [place] body weight in kilograms 50 01/29/2016 BP Systolic Sitting Left Arm 118 mmHg BP Diastolic Sitting Left Arm 72 mmHg Body Temperature 97.9 F Height 62 inches 5'2" Weight 181.00 lb BMI (Body Mass Index) 33.1 kg/m2 BSA (Body Surface Area) 1.83 m2 [place] body weight in kilograms 50 01/15/2016 BP Systolic Sitting Left Arm 154 mmHg BP Diastolic Sitting Left Arm 74 mmHg Body Temperature 98.5 F Height 62 inches 5'2" Weight 185.00 lb BMI (Body Mass Index) 33.8 kg/m2 BSA (Body Surface Area) 1.85 m2 [place] body weight in kilograms 50 01/05/2016 BP Systolic Sitting Left Arm 122 mmHg BP Diastolic Sitting Left Arm 76 mmHg Body Temperature 98.4 F Heart Rate 76 /min Respiratory Rate 18 /min Height 62 inches 5'2" Weight 183.00 lb BMI (Body Mass Index) 33.5 kg/m2 BSA (Body Surface Area) 1.84 m2 [place] body weight in kilograms 50 12/11/2015 BP Systolic Sitting Left Arm 124 mmHg BP Diastolic Sitting Left Arm 76 mmHg Body Temperature 99.1 F Heart Rate 70 /min Respiratory Rate 18 /min Height 62 inches 5'2" Weight 185.00 lb BMI (Body Mass Index) 33.8 kg/m2 BSA (Body Surface Area) 1.85 m2 [place] body weight in kilograms 50 05/26/2015 BP [...] Lymph % 10.6 % Low 20.0-42.0 1 [place] % 7.5 % 4.3-13.2 1 Eo% 0.1 % 0.0-6.6 1 Bas% 0.0 % 0.0-1.1 1 Neut# 6.64 K/uL 1.8-7.0 1 Lymph # 0.86 K/uL Low 1.0-4.0 1 [place] # 0.61 K/uL 0.3-0.9 1 Eos # [...] TRACE mg/dL High Negative 4 Urine Specific [place] 1.010 1.010-1.030 4 Urine Blood NEGATIVE Negative [...] Lymph % 14.0 % Low 20.0-42.0 4 [place] % 5.7 % 4.3-13.2 4 Eo% 0.3 % 0.0-6.6 4 Bas% 0.1 % 0.0-1.1 4 Neut# 6.20 K/uL 1.8-7.0 4 Lymph # 1.09 K/uL 1.0-4.0 4 [place] # 0.44 K/uL 0.3-0.9 4 Eos # [...] 19 Lymph % 22.2 % 20.0-42.0 19 [place] % 8.1 % 4.3-13.2 19 Eo% 4.2 % 0.0-6.6 19 Bas% 0.4 % 0.0-1.1 19 Neut# 3.29 K/uL 1.8-7.0 19 Lymph # 1.12 K/uL 1.0-4.0 19 [place] # 0.41 K/uL 0.3-0.9 19 Eos # [...] BLACK STOOLS/WAS HERE YESTERDAY 2 Method: [place] [place] Hemoccult Card 3 Note: Persistent reduction for [...] [address]: Jonas Valadez MD Acct: [id number] Unit: [id number] AGE: 72 Location: [facility] Re12/06/17 SEX: F Status: REG REF SPEC: [id number] JAIR: 12/06/[address] 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 ESCHERICHIA COLI [...] . END OF REPORT DEPARTMENT OF PATHOLOGY, [address] [place] [address] Mandeep Dunbar M.D. Director [facility] # [id number] 14 Z01.818 H26.9 15 ESCHERICHIA COLI 16 > 100,000 CFU/mL 17 R73.9 18 Elevated levels of HbA1c suggest the need for more aggressive treatment of glycemia. The [place] [employer] recommends that a primary goal [...] Cholesterol Education Program (NCEP) 25 Performed at: [facility] - [address] [id number] Professional Shopper: Chris Iyer MD, Phone: [phone] Note: Persistent reduction for 3 months [...] Date CPT Code Description Status Comment 01/25/2018 06147 EGD With Biopsy Completed 07/26/2017 11684 EKG-Tracing And Report Completed 09/27/2016 96321 Colonoscopy Completed 04/28/2015 Mammogram Completed Q 2 years Smiley Behzad 06/27/2012 Bone Mineral Density Test Completed osteopenia 03/16/2012 92557 EKG-Tracing And Report Completed 02/08/2011 00624 Holter Monitor 24HR Completed Inter/Report 01/29/2011 93205 Stress Test Interpre And Report Completed Only 01/29/2011 39321 Stress Test Physician Super Completed Only 01/29/2011 96360 Myocardial Imaging Tomographic Completed Multiple Study AT Rest Or Stress 01/25/2011 67025 EKG-Tracing And Report Completed 01/25/2011 85415 EKG-Tracing And Report Completed 01/04/2011 70670 Echocardiogram Complete Completed 07/24/2007 35292 Asp/Injection small joint/bursa Completed (ie-fingers,toes) 03/07/2007 25 Disability Form Completed 03/29/2006 73615 Asp/Injection small joint/bursa Completed (ie-fingers,toes) 05/17/2005 Colonoscopy Completed 04/13/2000 Flexible Sigmoidoscopy Completed Encounters Type Date Location Provider CPT E/M Dx Office Visit 02/07/2018 2:00p Family Medicine AIDAN Moore 65393 I10 R10.13 Office Visit 01/17/2018 2:30[place] [address] R10.13 Office Visit 01/09/2018 1:45p Family AIDAN Govea 91428 R10.13 R10.816 Office Visit 09/22/2017 10:30a Family AIDAN Govea 64743 I10 F41.0 Office Visit 08/25/2017 10:30a Family AIDAN Govea 39282 I10 F33.1 F41.0 Office Visit 07/26/2017 10:15a Family AIDAN Govea 12819 Z01.818 H54.52A1 F41.0 I10 Office Visit 06/06/2017 9:00a Family AIDAN Govea 44311 F41.0 Office Visit 03/07/2017 10:00a Family AIDAN Govea 90050 F41.0 I10 M54.5 F33.1 Z23 Office Visit 10/21/2016 10:15a Family [facility] Alec Huertas, [facility] [address] I10 Office Visit 10/19/2016 1:30p [facility] Alec Huertas [facility] 88619 Z01.818 H26.9 R30.0 I10 Office Visit 09/14/2016 10:45[place] [address] Z12.11 Office Visit 09/01/2016 10:00a [facility] Alec Huertas, [facility] 70395 I10 M54.5 Office Visit 03/04/2016 3:00p [facility] Alec Huertas, [facility] 13202 J01.90 Office Visit 01/29/2016 10:15a [facility] Alec Huertas [facility] 39144 J30.9 J31.2 Office Visit 01/15/2016 1:15p [facility] Alec Huertas [facility] 53470 J30.9 Office Visit 01/05/2016 11:30a Family Medicine Margot Baeza M.D. 27302 J31.2 Office Visit 12/11/2015 11:45a [facility] Alec Huertas [facility] 12537 J02.9 Office Visit 05/26/2015 1:00p Family Medicine Margot Baeza M.D. 34635 F33.1 Z23 Office Visit 11/20/2014 1:30p Family Medicine Margot Baeza M.D. 68445 296.32 785.1 401.1 Office Visit 09/12/2014 2:00p Cardiology Office Justice Ponce, [address] 401.1 MCarina, [facility] 272.2 785.1 Office Visit 03/16/2012 10:20a Cardiology [place] [address] 401.1 786.59 427.69 Office Visit 03/08/2011 11:20a Cardiology [place] [address] 786.59 401.1 786.05 272.2 785.1 Office Visit 02/08/2011 1:20p Cardiology Office MARY Flowers 95403 786.59 401.1 786.05 272.2 785.1 Office Visit 01/25/2011 1:20p Cardiology Office MARY Flowers 41748 786.59 401.1 786.05 272.2 Plan of Care Future Appointment(s):08/10/2018 10:00 am - AIDAN Moore at [facility]03/10/2018 10:00 am - Family Nurse at [facility]02/07/2018 - JAEL Moore10 Essential (primary) hypertensionComments:Discussed that due to being symptomatic with low blood pressures will stop the hydrochlorothiazide (HCTZ)R10.13 Epigastric painComments:resolved. Follow up with gastroenterology as scheduled.
--- OUTSIDE RECORDS SUMMARY | 2018-02-27 08:40 | XMS REPORT ---
:1945 External Reference #:[id number] Author Organization [facility] Address [address], [address] [place] [address] Phone [phone] Care Team Providers Name Role Phone Alec Huertas NP Care Team Information Quality Improvement Specialist Unavailable Alec Huertas NP Primary Care Physician Unavailable Payers Type Date Identification Numbers Payment Provider Subscriber Commercial Expires: Policy Number: Tara Adams 2010 [id number] [place] PayID: [id number] [address] [address] [place] [address] Medicare Primary Policy Number: [id number] Medicare David Adams [place] PayID: [id number] [address] [place] [address] [facility] Policy Number: [facility] David Adams [place] [id number] PayID: [id number] [address] [place] [address] Problems Date Description Provider Status Onset: 09/01/2016 [...] Succinate ER /2017 24HR s mouth Clune, GIG TENDER every day Lorazepam 03/07 Active Tablets 1mg 30tab take 1 F41.0 s tablet Clune, GIG TENDER by mouth two times daily as needed for panic attacks Referenc e #: [id number] Fluoxetine HCL 08/18 Active Capsules 40mg 180ca take one Z01.818 ps capsule Clune, GIG TENDER by mouth twice daily Hydrocodone-Acet Active Tablets 5-325mg 90tab 1 M17.11 Jenniferlei aminophen s tabevery Clune, GIG TENDER 6 hours as needed pain.... . Referenc e #: [id number] Dairy-Digestive Active Chewtabs 9000Unit prn Margot / Florencio Baeza Apap Extra Active Tablets 500mg prn Unknown Strength / Fluticasone Active Suspension 50mcg/Act 15.80 2 sprays Jenniferleigh Propionate / 0ml intranas Clune, GIG TENDER al every day Famotidine Active Tablets 20mg 1 by Unknown /0000 mouth every day in the evening Simethicone 00/00 Active Capsules 125mg take 1 Unknown /0000 tab by mouth after meals and before bedtime as needed for flatus Pantoprazole Active Tablets DR 40mg Unknown Sodium / Ranitidine 150 Active Tablets 150mg 1 by Unknown Maximum Strength /0000 mouth twice a day Hydrochlorothiaz 08/27 Hx Tablets 25mg 90tab 1 by Alec s mouth MIRIAN HuertasP - every 02/07 day in am for HTN Metoprolol 08/25 Hx Tablets ER 50-12.5mg 90tab one PO I10 Alec Succinate 24HR s qd for ClMIRIAN castilloP ER/Hydrochloroth - HTN iazide 08/27 Golytely 09/14 [...] Tablets 500-125mg 20tab one by J01.90 Alec duarte s mouth AIDAN Huertas Potassium - twice a 03/14 day x days Omeprazole 02/04 Hx Capsules 40mg [address] mouth - every Loratadine 01/14 Hx Tablets 10mg 30tab 1 by J30.9 Alec s mouth Aleksandar, GIG TENDER - every Amoxicillin 12/10 Hx Capsules 500mg 30cap on by J02.9 Alec s mouth Aleksandar, GIG TENDER - three 12/20 times a day Venlafaxine HCL 05/26 Hx Tablets ER 150mg 30tab 1 by Z01.818 Margot ER /2014 24HR s mouth Florencio Baeza - every Metoprolol 02/08 Hx Tablets ER 25mg 90tab take one I10 Jenniferleigh Succinate ER /2010 24HR s tablet Cjanna, GIG TENDER - by mouth 08/25 once daily Nitroglycerin 01/25 Hx Tablets 0.4mg 25tab 1 tab 786.59 Austin Brantley Arcelia, Sub s prn , PhD chest pain, [...] DR 81mg 30tab 1 po qd Unknown /0000 s - 12/10 Icaps Hx Capsules 2 po bid Unknown /0000 - 09/01 Vitamin D3 Super Hx Tablets 2000Unit 1 po qd Unknown Strength / - 01/17 Nitrostat Hx Tablets 0.4mg 25tab 1 tab sl Jenniferleigh /0000 Sub s every 5 Clune, GIG TENDER - min x3 09/14 chest pain *divide in two bottles please* Folic Acid Hx Tablets 1mg 30tab 1 po bid Unknown /0000 s - 12/10 Ranitidine Acid Hx Tablets 75mg 1 PO qd Margot Sales Advisor /0000 Florencio Baeza - 05/26 Ketorolac Hx Solution 0.5% Chandana, Tromethamine / Kevon Neil MD 06/06 Ofloxacin Hx Solution 0.3% Fergerspoli, (Ophthalmic) Kevon Neil MD 06/06 Prednisolone Hx Suspension 1% Fergerson, Acetate Kevon Neil MD 06/06 Ranitidine HCL 00/00 Hx Tablets 150mg Shah, /0000 Prosper, GIG TENDER - 01/30 Immunizations CPT Code Status Date Vaccine Lot # 63612 Given 03/07/2017 Influenza Vaccine Split Virus Preservative Free Im Use [id number] Given 03/08/2016 Influenza Vaccine (Fluzone) Age 3 And Older 81970 Given 05/26/2015 Pneumococcal Conjugate Vaccine 13 Valent For [id number] Intramuscular Use Q2038 Given 03/31/2015 Influenza Vaccine (Fluzone) Age 3 And Older Vital Signs Date Vital Result Comment 02/07/2018 BP Systolic Sitting Left Arm 104 mmHg BP Diastolic Sitting Left Arm 64 mmHg Heart Rate 70 /min Respiratory Rate 18 /min Height 62 inches 5'2" Weight 165.38 lb BMI (Body Mass Index) 30.2 kg/m2 BSA (Body Surface Area) 1.76 m2 [place] body weight in kilograms 50 01/17/2018 BP Systolic Sitting Left Arm 118 mmHg BP Diastolic Sitting Left Arm 70 mmHg Heart Rate 62 /min Respiratory Rate 16 /min Height 62 inches 5'2" Weight 171.00 lb BMI (Body Mass Index) 31.3 kg/m2 BSA (Body Surface Area) 1.79 m2 [place] body weight in kilograms 50 01/09/2018 BP Systolic Sitting Left Arm 126 mmHg BP Diastolic Sitting Left Arm 72 mmHg Body Temperature 98.5 F Heart Rate 72 /min Respiratory Rate 18 /min Height 62 inches 5'2" Weight 174.12 lb BMI (Body Mass Index) 31.8 kg/m2 BSA (Body Surface Area) 1.80 m2 [place] body weight in kilograms 50 09/22/2017 BP Systolic Sitting Left Arm 122 mmHg BP Diastolic Sitting Left Arm 76 mmHg Heart Rate 76 /min Respiratory Rate 18 /min Height 62 inches 5'2" Weight 184.12 lb BMI (Body Mass Index) 33.7 kg/m2 BSA (Body Surface Area) 1.85 m2 [place] body weight in kilograms 50 08/25/2017 BP Systolic Sitting Left Arm 154 mmHg BP Diastolic Sitting Left Arm 74 mmHg Heart Rate 54 /min Respiratory Rate 16 /min Height 62 inches 5'2" Weight 187.25 lb BMI (Body Mass Index) 34.2 kg/m2 BSA (Body Surface Area) 1.86 m2 [place] body weight in kilograms 50 07/26/2017 BP Systolic Sitting Left Arm 142 mmHg BP Diastolic Sitting Left Arm 84 mmHg Heart Rate 80 /min Respiratory Rate 18 /min Height 62 inches 5'2" Weight 190.50 lb BMI (Body Mass Index) 34.8 kg/m2 BSA (Body Surface Area) 1.87 m2 [place] body weight in kilograms 50 06/06/2017 BP Systolic Sitting Left Arm 122 mmHg BP Diastolic Sitting Left Arm 74 mmHg Body Temperature 98.6 F Heart Rate 78 /min Respiratory Rate 18 /min Height 62 inches 5'2" Weight 186.00 lb BMI (Body Mass Index) 34.0 kg/m2 BSA (Body Surface Area) 1.85 m2 [place] body weight in kilograms 50 03/07/2017 BP Systolic Sitting Left Arm 124 mmHg BP Diastolic Sitting Left Arm 72 mmHg Heart Rate 82 /min Respiratory Rate 18 /min Height 62 inches 5'2" Weight 185.00 lb BMI (Body Mass Index) 33.8 kg/m2 BSA (Body Surface Area) 1.85 m2 [place] body weight in kilograms 50 10/19/2016 BP Systolic Sitting Left Arm 136 mmHg BP Diastolic Sitting Left Arm 78 mmHg Heart Rate 68 /min Respiratory Rate 18 /min Height 62 inches 5'2" Weight 188.00 lb BMI (Body Mass Index) 34.4 kg/m2 BSA (Body Surface Area) 1.86 m2 [place] body weight in kilograms 50 09/14/2016 BP Systolic 150 mmHg BP Diastolic 84 mmHg Heart Rate 68 /min Weight 186.00 lb 09/01/2016 BP Systolic Sitting Left Arm 122 mmHg BP Diastolic Sitting Left Arm 72 mmHg Heart Rate 88 /min Respiratory Rate 18 /min Height 62 inches 5'2" Weight 186.00 lb BMI (Body Mass Index) 34.0 kg/m2 BSA (Body Surface Area) 1.85 m2 [place] body weight in kilograms 50 03/04/2016 BP Systolic Sitting Left Arm 130 mmHg BP Diastolic Sitting Left Arm 72 mmHg Body Temperature 98.5 F Heart Rate 82 /min Respiratory Rate 18 /min Height 62 inches 5'2" Weight 184.00 lb BMI (Body Mass Index) 33.7 kg/m2 BSA (Body Surface Area) 1.85 m2 [place] body weight in kilograms 50 01/29/2016 BP Systolic Sitting Left Arm 118 mmHg BP Diastolic Sitting Left Arm 72 mmHg Body Temperature 97.9 F Height 62 inches 5'2" Weight 181.00 lb BMI (Body Mass Index) 33.1 kg/m2 BSA (Body Surface Area) 1.83 m2 [place] body weight in kilograms 50 01/15/2016 BP Systolic Sitting Left Arm 154 mmHg BP Diastolic Sitting Left Arm 74 mmHg Body Temperature 98.5 F Height 62 inches 5'2" Weight 185.00 lb BMI (Body Mass Index) 33.8 kg/m2 BSA (Body Surface Area) 1.85 m2 [place] body weight in kilograms 50 01/05/2016 BP Systolic Sitting Left Arm 122 mmHg BP Diastolic Sitting Left Arm 76 mmHg Body Temperature 98.4 F Heart Rate 76 /min Respiratory Rate 18 /min Height 62 inches 5'2" Weight 183.00 lb BMI (Body Mass Index) 33.5 kg/m2 BSA (Body Surface Area) 1.84 m2 [place] body weight in kilograms 50 12/11/2015 BP Systolic Sitting Left Arm 124 mmHg BP Diastolic Sitting Left Arm 76 mmHg Body Temperature 99.1 F Heart Rate 70 /min Respiratory Rate 18 /min Height 62 inches 5'2" Weight 185.00 lb BMI (Body Mass Index) 33.8 kg/m2 BSA (Body Surface Area) 1.85 m2 [place] body weight in kilograms 50 05/26/2015 BP [...] Lymph % 10.6 % Low 20.0-42.0 1 [place] % 7.5 % 4.3-13.2 1 Eo% 0.1 % 0.0-6.6 1 Bas% 0.0 % 0.0-1.1 1 Neut# 6.64 K/uL 1.8-7.0 1 Lymph # 0.86 K/uL Low 1.0-4.0 1 [place] # 0.61 K/uL 0.3-0.9 1 Eos # [...] TRACE mg/dL High Negative 4 Urine Specific [place] 1.010 1.010-1.030 4 Urine Blood NEGATIVE Negative [...] Lymph % 14.0 % Low 20.0-42.0 4 [place] % 5.7 % 4.3-13.2 4 Eo% 0.3 % 0.0-6.6 4 Bas% 0.1 % 0.0-1.1 4 Neut# 6.20 K/uL 1.8-7.0 4 Lymph # 1.09 K/uL 1.0-4.0 4 [place] # 0.44 K/uL 0.3-0.9 4 Eos # [...] 19 Lymph % 22.2 % 20.0-42.0 19 [place] % 8.1 % 4.3-13.2 19 Eo% 4.2 % 0.0-6.6 19 Bas% 0.4 % 0.0-1.1 19 Neut# 3.29 K/uL 1.8-7.0 19 Lymph # 1.12 K/uL 1.0-4.0 19 [place] # 0.41 K/uL 0.3-0.9 19 Eos # [...] 1 BLACK STOOLS/WAS HERE YESTERDAY 2 Method: Bright [employer] Slinger Hemoccult Card 3 Note: Persistent reduction for [...] [address]: Jonas Valadez MD Acct: [id number] Unit: [id number] AGE: 72 Location: [facility] Re12/06/17 SEX: F Status: REG REF SPEC: [id number] JAIR: 12/06/[address] [facility] [address]: Jonas Valadez MD REQ: [id number] RECD: 12/06/17 STATUS: INGRIS WONG DR: Alec Huertas GIG TENDER _ SOURCE: URINE SPDESC: ORDERED: Urine Culture QUERIES: Urine Source: Clean Catch Procedure Result Reported Site Urine Culture Final 12/08/17- 0809 ML Organism 1 ESCHERICHIA COLI [place] Count >100,000 (Many) CFU/ML 1. ESCHERICHIA COLI [...] . END OF REPORT DEPARTMENT OF PATHOLOGY, [address] [place] [address] Mandeep Dunbar M.D. Director [facility] # [id number] 14 Z01.818 H26.9 15 ESCHERICHIA COLI 16 > 100,000 CFU/mL 17 R73.9 18 Elevated levels of HbA1c suggest the need for more aggressive treatment of glycemia. The [place] [employer] recommends that a primary goal [...] Cholesterol Education Program (NCEP) 25 Performed at: [facility] [id number] Slitter Cut Off Operator: Chris Iyer MD, Phone: [phone] Note: Persistent reduction for 3 months [...] Date CPT Code Description Status Comment 01/25/2018 24868 EGD With Biopsy Completed 07/26/2017 51973 EKG-Tracing And Report Completed 09/27/2016 73410 Colonoscopy Completed 04/28/2015 Mammogram Completed Q 2 years Smiley Wen 06/27/2012 Bone Mineral Density Test Completed osteopenia 03/16/2012 91221 EKG-Tracing And Report Completed 02/08/2011 17759 Holter Monitor 24HR Completed Inter/Report 01/29/2011 34507 Stress Test Interpre And Report Completed Only 01/29/2011 99447 Stress Test Physician Super Completed Only 01/29/2011 41034 Myocardial Imaging Tomographic Completed Multiple Study AT Rest Or Stress 01/25/2011 58956 EKG-Tracing And Report Completed 01/25/2011 74973 EKG-Tracing And Report Completed 01/04/2011 88392 Echocardiogram Complete Completed 07/24/2007 Asp/Injection small joint/bursa Completed (ie-fingers,toes) 03/07/2007 25 Disability Form Completed 03/29/2006 Asp/Injection small joint/bursa Completed (ie-fingers,toes) 05/17/2005 Colonoscopy Completed 04/13/2000 Flexible Sigmoidoscopy Completed Encounters Type Date Location Provider CPT E/M Dx Office Visit 02/07/2018 2:00p Family Medicine AIDAN oMore 88087 I10 R10.13 Office Visit 01/17/2018 2:30[place] [address] R10.13 Office Visit 01/09/2018 1:45p Family Medicine AIDAN Moore 09152 R10.13 R10.816 Office Visit 09/22/2017 10:30a Family Medicine AIDAN Moore 71601 I10 F41.0 Office Visit 08/25/2017 10:30a Family Medicine AIDAN Moore 52854 I10 F33.1 F41.0 Office Visit 07/26/2017 10:15a Family Medicine AIDAN Moore 46738 Z01.818 H54.52A1 F41.0 I10 Office Visit 06/06/2017 9:00a Family Medicine AIDAN Moore 33766 F41.0 Office Visit 03/07/2017 10:00a Family Medicine AIDAN Moore 22784 F41.0 I10 M54.5 F33.1 Z23 Office Visit 10/21/2016 10:15a Family Medicine AIDAN Moore 00787 I10 Office Visit 10/19/2016 1:30p Family Medicine AIDAN Moore 51021 Z01.818 H26.9 R30.0 I10 Office Visit 09/14/2016 10:45[place] [address] Z12.11 Office Visit 09/01/2016 10:00a [facility] YeseniayarelisAIDAN Cancino 46439 I10 M54.5 Office Visit 03/04/2016 3:00p [facility] ZeerasheedaAIDAN Cancino 01947 J01.90 Office Visit 01/29/2016 10:15a [facility] YeseniayarelisAIDAN Cancino 68723 J30.9 J31.2 Office Visit 01/15/2016 1:15p [facility] YeseniayarelisAIDAN Cancino 30036 J30.9 Office Visit 01/05/2016 11:30a [facility] Margot Baeza M.D. 94890 J31.2 Office Visit 12/11/2015 11:45a [facility] AIDAN Moore 72617 J02.9 Office Visit 05/26/2015 1:00p [facility] Margot Baeza M.D. 13086 F33.1 Z23 Office Visit 11/20/2014 1:30p [facility] Margot Baeza M.D. 83496 296.32 785.1 401.1 Office Visit 09/12/2014 2:00p Cardiology Office Justice Ponce, 15874 401.1 MCarina, [facility] 272.2 785.1 Office Visit 03/16/2012 10:20a Cardiology [place] [address] 401.1 786.59 427.69 Office Visit 03/08/2011 11:20a Cardiology [place] [address] 786.59 401.1 786.05 272.2 785.1 Office Visit 02/08/2011 1:20p Cardiology Office MARY Flowers 36435 786.59 401.1 786.05 272.2 785.1 Office Visit 01/25/2011 1:20p Cardiology Office MARY Flowers 85660 786.59 401.1 786.05 272.2 Plan of Care Future Appointment(s):08/10/2018 10:00 am - AIDAN Moore at [facility]03/10/2018 10:00 am - Family Nurse at [facility]02/07/2018 - JAEL Moore10 Essential (primary) hypertensionComments:Discussed that due to being symptomatic with low blood pressures will stop the hydrochlorothiazide (HCTZ)R10.13 Epigastric painComments:resolved. Follow up with gastroenterology as scheduled.
[2018-02-27 08:47] VITALS: BP 138/53
--- NOTE | 2018-02-27 08:51 | UC ---
Ear Complaint HPI - HPI Summary HPI Summary: 72 year old woman with a chief complaint of right ear pain. It started several days ago. She uses hearing aids. She lost a piece of the right hearing aid and wonders if it is stuck in her right ear. There is mild pain. The pain is worse when she puts the hearing aid in. No runny nose no fevers no chills. - History of Current Complaint Stated Complaint: RIGHT EAR COMPLAINT Time Seen by Provider: 02/27/18 08:37 - Allergies/Home Medications Allergies/Adverse Reactions: Allergies Allergy/AdvReac Type Severity Reaction Status Date / Time No Known Allergies Allergy Verified 02/27/18 08:47 PMH/Surg Hx/FS Hx/Imm Hx Endocrine History: Dyslipidemia Cardiovascular History: Hypertension - Surgical History Surgical History: Yes Surgery Procedure, Year, and Place: HYSTERECTOMY. BACK SURGERY- [facility]. CHOLECYSTECTOMY. GASTRIC BYPASS. [facility]ARACHS. EYE SURGERY FOR DOUBLE VISION - Family History Known Family History: Positive: Cardiac Disease, Diabetes - Social History Alcohol Use: Rare Substance Use Type: Prescribed Substance Use Comment - Amount & Last Used: Hydrocodone PRN Smoking Status (MU): Never Smoked Tobacco Have You Smoked in the Last Year: No - Immunization History Vaccination Up to Date: Yes Review of Systems Constitutional: Negative Skin: Negative Eyes: Negative ENT: Other - Right ear pain Respiratory: Negative Cardiovascular: Negative Gastrointestinal: Negative Genitourinary: Negative Motor: Negative Neurovascular: Negative Musculoskeletal: Negative Neurological: Negative Psychological: Negative Is Patient Immunocompromised?: No All Other Systems Reviewed And Are Negative: Yes Physical Exam Triage Information Reviewed: Yes Appearance: Well-Appearing, No Pain Distress Vital Signs Reviewed: Yes Eye Exam: Normal ENT: Positive: Pharynx normal, TMs normal, Other - There is tenderness to palpation of the right tragus and tenderness to traction on the right PINNA. The year canal on the right shows excoriation. The left ear canal is normal.. Negative: Nasal congestion, Nasal drainage Neck: Positive: Supple Respiratory Exam: Normal Respiratory: Positive: Lungs clear Cardiovascular Exam: Normal Cardiovascular: Positive: RRR Musculoskeletal Exam: Normal Musculoskeletal: Positive: Strength Intact Neurological Exam: Normal Neurological: Positive: Alert Psychological Exam: Normal Skin Exam: Normal Ear Complaint Course/Dx - Course Course Of Treatment: RX CORTISPORIN OTIC. PATIENT HAS F/U WITH AUDIOLOGY ON . - Differential Dx/Diagnosis Provider Diagnoses: RIGHT OTITIS EXTERNA Discharge - Sign-Out/Discharge Documenting (check all that apply): Patient Departure All imaging exams completed and their final reports reviewed: No Studies - Discharge Plan Condition: Stable Disposition: HOME Prescriptions: Neomyc/Polym/HC 1% OTIC SUSP* [Cortisporin Otic Susp 1%*] 4 drop RIGHT EAR QID # 1 btl Patient Education Materials: Otitis Externa (ED) Referrals: Danielle Huertas NP [Primary Care Provider] - Additional Instructions: FOLLOW UP WITH YOUR LANDFILL ATTENDANT ON 03/02/18 SCHEDULED. GET RECHECKED FOR ANY WORSENING OF YOUR CONDITION OR QUESTIONS OR CONCERNS. - Billing Disposition and Condition Condition: STABLE Disposition: Home
== END 2018-02-27 08:53 | disposition home or self-care (01) ==
LOC: UCCORT 08:27
DX: H60.91 Unspecified otitis externa, right ear (principal); I10 Essential (primary) hypertension
CPT/HCPCS: 99212; G0463

== ENCOUNTER 2018-11-10 07:57 | Emergency (ER) | payer MEDICARE ==
[2018-11-10 08:18] VITALS: BP 130/58
--- NOTE | 2018-11-10 09:25 | UC ---
General HPI - HPI Summary HPI Summary: Pleasant 73 yo female c/o last couple months of freq /urg urination, some dysuria. + feeling tired, weak. Urine sx worse, prompting visit here today. No fever / chills. No back / flank pain. No melena / brbrr. + hx kidney stones, but didn't want to drive to [place] to see urologist d/t feels bad. No rash. - History of Current Complaint Chief Complaint: UCGU Stated Complaint: URINARY COMPLAINT Time Seen by Provider: 11/10/18 08:57 Hx Obtained From: Patient Pain Intensity: 4 - Allergy/Home Medications Allergies/Adverse Reactions: Allergies Allergy/AdvReac Type Severity Reaction Status Date / Time lactose Allergy Nausea, Verified 11/10/18 08:12 "Gas", "Sometimes Vomiting" Home Medications: Home Medications Acetaminophen [Acetaminophen Extra Strength] 1,000 mg PO Q6H PRN 11/10/18 [ History Confirmed 11/10/18] FLUoxetine CAP* [PROzac CAP*] 40 mg PO BID 11/10/18 [History Confirmed 11/10/18] HYDROcodone/ACETAMIN 5-325 MG* [Kyburz 5-325 TAB*] 1 tab PO Q6H PRN 11/10/18 [ History Confirmed 11/10/18] LORazepam TAB(*) [Ativan 1 MG TAB (*)] 1 mg PO BID PRN 11/10/18 [History Confirmed 11/10/18] Lactase [Lactaid] 9,000 unit PO SEE INSTRUCTIONS PRN 11/10/18 [History Confirmed 11/10/18] Metoprolol Tartrate TAB* [Lopressor TAB*] 50 mg PO DAILY 11/10/18 [History Confirmed 11/10/18] Ranitidine TAB (NF) [Zantac TAB (NF)] 150 mg PO BID 11/10/18 [History Confirmed 11/10/18] Simethicone [Gas Relief] 125 mg PO SEE INSTRUCTIONS PRN 11/10/18 [History Confirmed 11/10/18] PMH/Surg Hx/FS Hx/Imm Hx Previously Healthy: Yes - see rn notes - Surgical History Surgical History: Yes Surgery Procedure, Year, and Place: HYSTERECTOMY. BACK SURGERY- [facility]. CHOLECYSTECTOMY. GASTRIC BYPASS. CATARACHS. EYE SURGERY FOR DOUBLE VISION - Family History Known Family History: Positive: Cardiac Disease, Diabetes - Social History Alcohol Use: Rare Substance Use Type: Prescribed Substance Use Comment - Amount & Last Used: Hydrocodone PRN Smoking Status (MU): Never Smoked Tobacco Have You Smoked in the Last Year: No - Immunization History Vaccination Up to Date: Yes Review of Systems All Other Systems Reviewed And Are Negative: Yes Constitutional: Positive: Other - see hpi Skin: Positive: Negative ENT: Positive: Negative Respiratory: Positive: Negative Cardiovascular: Positive: Negative Gastrointestinal: Positive: Other - see hpi Genitourinary: Positive: Other - see hpi Motor: Positive: Negative Neurovascular: Positive: Negative Musculoskeletal: Positive: Negative Neurological: Positive: Negative Psychological: Positive: Negative Is Patient Immunocompromised?: No Physical Exam Triage Information Reviewed: Yes Appearance: Well-Nourished - sitting up. looks tired, but nad. nontoxic. Vital Signs: Initial Vital Signs Temp 97.6 F 11/10/18 08:10 Pulse 64 11/10/18 08:10 Resp 17 11/10/18 08:10 BP 130/58 11/10/18 08:10 Pulse Ox 100 11/10/18 08:10 Vital Signs Reviewed: Yes Eye Exam: Normal - grossly nl. ENT Exam: Normal - mmm Neck exam: Normal - grossly normal Respiratory Exam: Normal Respiratory: Positive: Chest non-tender, Lungs clear, Normal breath sounds, No respiratory distress, No accessory muscle use Cardiovascular Exam: Normal Cardiovascular: Positive: RRR Abdominal Exam: Other - soft, benign. mild tender over bladder area. No cvat no flank c/o + bs. Musculoskeletal Exam: Normal Neurological Exam: Normal - grossly nonfocal Psychological Exam: Normal - nad Skin Exam: Normal - no visible or reported rash Course/Dx - Course Course Of Treatment: REviewed urine dip with pt. Reviewed need for f/u, monique in light of hx renal stone. Question as posed answered to the best of my ability. Reviewed meds / allergies. - Diagnoses Provider Diagnosis: UTI (urinary tract infection), Hematuria Discharge - Sign-Out/Discharge Documenting (check all that apply): Patient Departure All imaging exams completed and their final reports reviewed: No Studies - Discharge Plan Condition: Critical Disposition: HOME Prescriptions: Cefdinir [Cefdinir 300 MG CAP] 300 mg PO BID #14 cap Patient Education Materials: Hematuria (ED), Urinary Tract Infection in Older Adults (ED) Referrals: Danielle Huertas NP [Primary Care Provider] - Additional Instructions: Follow up with your urologist and / or your primary care physician in the next 1 -2 weeks. Please seek immediate medical attention for worse or new problems in the meantime. Continue to hydrate. - Billing Disposition and Condition Condition: CRITICAL Disposition: Home
== END 2018-11-10 09:28 | disposition home or self-care (01) ==
LOC: UCCORT 07:57
DX: N39.0 Urinary tract infection, site not specified (principal); R31.9 Hematuria, unspecified; Z79.899 Other long term (current) drug therapy
CPT/HCPCS: 81003; 87077; 87086; 87186; 99212; G0463